=== PATIENT | female | born 1970 | race Hispanic/Latino ===

== ENCOUNTER → 2018-11-26 | Day surgery (SDC) | payer MEDICARE ==
[~2018-11-26] MED LIST: ASPIRIN81 MG PO; FENTANYL CITRATE/PF 100MCG/2 ML INJ ONE; GLUCAGON FOR INJ 1 MG VIAL ONE; HYOSCYAMINE SULFATE 0.5 MG/ML INJ ONE; LIDOCAINE HCL 2% LOCAL INJ 5 ML SDV VIAL INJ ONE; MIDAZOLAM HCL 2 MG/2 ML VIAL ONE; PROPOFOL IV EMULSION 10 MG/ML 50 ML VIAL ONE; TRIAMCINOLONE A15 G1; VITAMIN D1000 UNI1 PO; XALATAN2.5 ML
--- OUTSIDE RECORDS SUMMARY | 2018-11-26 10:03 | XMS REPORT | Summary of Care ---
Author Organization Unknown Address Unknown Phone Unavailable Encounter CHRISTY Mckeon(MISBAH) [id number] Date(s): 06/30/14 - 07/01/[address] Discharge Disposition: Home Physician Attending: Harshil De La O MD Physician Admitting: Harshil De La O MD Reason for Visit CADASIL Vital Signs 1 2 3 Most recent to oldest [Reference Range]: 154.94 cm (07/01/14 12:30 AM) 154.94 cm (06/30/14 4:08 PM) Height 99.3 DegF *HI* (06/30/14 10:36 PM) 98.5 DegF (06/30/14 6:47 PM) 98.3 DegF (06/30/14 4:08 PM) Temperature Oral [96.4-99.1 DegF] 156 mmHg *HI* (07/01/14 12:00 PM) 124 mmHg (07/01/14 11:00 AM) 119 mmHg (07/01/14 10:00 AM) Systolic Blood Pressure [90-140 mmHg] 81 mmHg (07/01/14 12:00 PM) 74 mmHg (07/01/14 11:00 AM) 77 mmHg (07/01/14 10:00 AM) Diastolic Blood Pressure [60-90 mmHg] 29 BRMIN *HI* (07/01/14 12:00 PM) 25 BRMIN *HI* (07/01/14 11:00 AM) 20 BRMIN (07/01/14 10:00 AM) Respiratory Rate [14-20 BRMIN] 77 bpm (06/30/14 10:36 PM) 80 bpm (06/30/14 6:47 PM) 84 bpm (06/30/14 4:08 PM) Peripheral Pulse Rate [60-100 bpm] 87.841 kg (07/01/14 12:30 AM) 84.091 kg (06/30/14 4:08 PM) Weight 36.59 m2 (07/01/14 12:30 AM) 35.03 m2 (06/30/14 4:08 PM) Body Mass Index Problem List Condition Effective Dates Status Health Status Informant Anxiety(Confirmed) Resolved 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) CVA (cerebral Resolved vascular accident)(Confirmed) Dementia(Confirmed) Resolved Glaucoma(Confirmed) Resolved HTN (hypertension), Resolved benign(Confirmed) MR (mental Resolved retardation)(Confirm ed) Allergies, Adverse Reactions, Alerts Substance Reaction Severity Status contrast media Active (iodine-based) penicillin Active Medications Abilify 2 mg oral tablet 6 mg=3 tab, PO, Daily, # 90 tab, 0 Refill(s) Start Date: 07/01/14 Status: Ordered Ativan 1 mg oral tablet 1 mg=1 tab, PRN, 0 Refill(s) Start Date: 07/01/14 Status: Ordered Ciprodex otic suspension 5 drp, RIGHT EAR, BID, 0 Refill(s) Start Date: 07/01/14 Status: Ordered Nuedexta oral capsule 1 cap, PO, BID, 0 Refill(s) Start Date: 07/01/14 Status: Ordered Saline Flush 0.9% 10 ml, Route: IVP, Drug Form: INJ, Dosing Weight 84.091, kg, Q12H, Start date: 0 07/01/14 9:00:00, Duration: 30 day, Stop date: 07/30/14 21:00:00 Notes: Same as: BD Posiflush Sterile Start Date: 07/01/14 Stop Date: 07/01/14 Status: Discontinued Saline Flush 0.9% 10 ml, Route: IVP, Drug Form: INJ, Dosing Weight 84.091, kg, PRN, PRN Line Flush , Start date: 06/30/14 21:48:00, Duration: 30 day, Stop date: 07/30/14 21:47:00 Notes: Same as: BD Posiflush Sterile Start Date: 06/30/14 Stop Date: 07/01/14 Status: Discontinued Results ELECTROLYTES Most recent to 1 2 oldest [Reference Range]: Sodium Lvl [135-145 139 mEq/L 142 mEq/L mEq/L] (07/01/14 3:35 AM) (06/30/14 10:07 PM) Potassium Lvl 5.0 mEq/L 3.7 mEq/L [3.5-5.1 mEq/L] (07/01/14 3:35 AM) (06/30/14 10:07 PM) Chloride Lvl [95-109 108 mEq/L 107 mEq/L mEq/L] (07/01/14 3:35 AM) (06/30/14 10:07 PM) CO2 [24-32 mEq/L] 20 mEq/L 21 mEq/L *LOW* *LOW* (07/01/14 3:35 AM) (06/30/14 10:07 PM) AGAP [10.0-20.0 16.0 mEq/L 17.7 mEq/L mEq/L] (07/01/14 3:35 AM) (06/30/14 10:07 PM) CHEM PANEL Most recent to 1 2 oldest [Reference Range]: Creatinine Lvl 0.4 mg/dL 0.6 mg/dL [0.5-1.4 mg/dL] *LOW* (06/30/14 10:07 PM) (07/01/14 3:35 AM) eGFR 129 mL/min/1.73m2 1 113 mL/min/1.73m2 2 *NA* *NA* (07/01/14 3:35 AM) (06/30/14 10:07 PM) BUN [7-22 mg/dL] 10 mg/dL 12 mg/dL (07/01/14 3:35 AM) (06/30/14 10:07 PM) Glucose Lvl [70-99 89 mg/dL 3 103 mg/dL 4 mg/dL] (07/01/14 3:35 AM) *HI* (06/30/14 10:07 PM) Total Protein 8.2 g/dL [6.4-8.4 g/dL] (06/30/14 10:07 PM) Albumin Lvl [3.5-5.0 3.7 g/dL g/dL] (06/30/14 10:07 PM) Globulin [2.0-4.0 4.5 g/dL g/dL] *HI* (06/30/14 10:07 PM) A/G Ratio [0.7-1.6] 0.8 (06/30/14 10:07 PM) Calcium Lvl 8.6 mg/dL 8.9 mg/dL [8.5-10.5 mg/dL] (07/01/14 3:35 AM) (06/30/14 10:07 PM) Phosphorus [2.5-4.5 3.5 mg/dL mg/dL] (07/01/14 3:35 AM) Magnesium Lvl 2.0 mg/dL [1.8-2.4 mg/dL] (07/01/14 3:35 AM) ALT [0-65 unit/L] 20 unit/L (06/30/14 10:07 PM) AST [0-37 unit/L] 19 unit/L (06/30/14 10:07 PM) Alk Phos [39-136 112 unit/L unit/L] (06/30/14 10:07 PM) Bili Total [0.2-1.3 0.3 mg/dL mg/dL] (06/30/14 10:07 PM) Bili Direct [0.0-0.3 0.2 mg/dL mg/dL] (06/30/14 10:07 PM) Bili Indirect 0.1 mg/dL [0.0-1.0 mg/dL] (06/30/14 10:07 PM) 1Result Comment: The eGFR is calculated using the CKD-EPI formula. In most young, healthy individuals the eGFR will be >90 mL/min/1.73m2. The eGFR declines with age. An eGFR of 60-89 may be normal in some populations, particularly the elderly, for whom the CKD-EPI formula has not been extensively validated. Use of the eGFR is not recommended in the following populations: Individuals with unstable creatinine concentrations, including patients and those with serious co-morbid conditions. Patients with extremes in muscle mass or diet. The data above are obtained from the National Kidney Disease Education Program ( NK[employer]) which additionally recommends that when the eGFR is used in patients with extremes of body mass index for purposes of drug dosing, the eGFR should be mul tiplied by the estimated BMI. 2Result Comment: The eGFR is calculated using the CKD-EPI formula. In most young, healthy individuals the eGFR will be >90 mL/min/1.73m2. The eGFR declines with age. An eGFR of 60-89 may be normal in some populations, particularly the elderly, for whom the CKD-EPI formula has not been extensively validated. Use of the eGFR is not recommended in the following populations: Individuals with unstable creatinine concentrations, including patients and those with serious co-morbid conditions. Patients with extremes in muscle mass or diet. The data above are obtained from the National Kidney Disease Education Program ( NKDEP) which additionally recommends that when the eGFR is used in patients with extremes of body mass index for purposes of drug dosing, the eGFR should be mul tiplied by the estimated BMI. 3Interpretive Data: Adult reference range values reflect the clinical guidelines of the [place] [employer]. 4Interpretive Data: Adult reference range values reflect the clinical guidelines of the [place] [employer]. LIPIDS Most recent to [Reference Range]: CHD Risk [3.90-5.80] 1.73 *LOW* (07/01/14 3:35 AM) Chol [<=199 mg/dL] 130 mg/dL (07/01/14 3:35 AM) Trig [<=149 mg/dL] 60 mg/dL (07/01/14 3:35 AM) HDL [>=61 mg/dL] 75 mg/dL (07/01/14 3:35 AM) LDL (Calculated) 43 mg/dL [<=99 mg/dL] (07/01/14 3:35 AM) VLDL 12 *NA* (07/01/14 3:35 AM) SPECIAL CHEMISTRY Most recent to [Reference Range]: Hgb A1C [<=5.6 %] 5.2 % (07/01/14 3:35 AM) HEMATOLOGY Most recent to 1 oldest [Reference Range]: WBC [3.7-10.4 K/CMM] 7.6 K/CMM 8.3 K/CMM (07/01/14 3:35 AM) (06/30/14 10:07 PM) RBC [4.20-5.40 4.18 M/CMM 4.47 M/CMM M/CMM] *LOW* (06/30/14 10:07 PM) (07/01/14 3:35 AM) Hgb [12.0-16.0 g/dL] 11.8 g/dL 12.1 g/dL *LOW* (06/30/14 10:07 PM) (07/01/14 3:35 AM) Hct [36.0-48.0 %] 36.5 % 38.7 % (07/01/14 3:35 AM) (06/30/14 10:07 PM) MCV [80.0-98.0 fL] 87.3 fL 86.5 fL (07/01/14 3:35 AM) (06/30/14 10:07 PM) MCH [27.0-31.0 pg] 28.2 pg 27.1 pg (07/01/14 3:35 AM) (06/30/14 10:07 PM) MCHC [32.0-36.0 32.4 g/dL 31.4 g/dL g/dL] (07/01/14 3:35 AM) *LOW* (06/30/14 10:07 PM) RDW [11.5-14.5 %] 14.7 % 13.9 % *HI* (06/30/14 10:07 PM) (07/01/14 3:35 AM) Platelet [133-450 281 K/CMM 267 K/CMM K/CMM] (07/01/14 3:35 AM) (06/30/14 10:07 PM) MPV [7.4-10.4 fL] 8.9 fL 8.3 fL (07/01/14 3:35 AM) (06/30/14 10:07 PM) Segs [45.0-75.0 %] 58.2 % 55.0 % (07/01/14 3:35 AM) (06/30/14 10:07 PM) Bands [0.0-11.0 %] 0.0 % (06/30/14 10:07 PM) Lymphocytes 31.6 % 37.0 % [20.0-40.0 %] (07/01/14 3:35 AM) (06/30/14 10:07 PM) Atypical Lymphs 0.0 % [<=0.0 %] (06/30/14 10:07 PM) Monocytes [2.0-12.0 8.6 % 8.0 % %] (07/01/14 3:35 AM) (06/30/14 10:07 PM) Eosinophils [0.0-4.0 1.3 % %] (07/01/14 3:35 AM) Basophils [0.0-1.0 0.3 % %] (07/01/14 3:35 AM) Segs-Bands # 4.4 K/CMM 4.6 K/CMM [1.5-8.1 K/CMM] (07/01/14 3:35 AM) (06/30/14 10:07 PM) Lymphocytes # 2.4 K/CMM 3.1 K/CMM [1.0-5.5 K/CMM] (07/01/14 3:35 AM) (06/30/14 10:07 PM) Monocytes # [0.0-0.8 0.7 K/CMM 0.7 K/CMM K/CMM] (07/01/14 3:35 AM) (06/30/14 10:07 PM) Eosinophils # 0.1 K/CMM [0.0-0.5 K/CMM] (07/01/14 3:35 AM) Tot Cell Ct 100 *NA* (06/30/14 10:07 PM) RBC Morph Normal (06/30/14 10:07 PM) Plt Morph Normal (06/30/14 10:07 PM) PT [12.0-14.7 12.3 seconds seconds] (06/30/14 10:07 PM) INR [0.85-1.17] 0.92 5 (06/30/14 10:07 PM) PTT [22.9-35.8 30.3 seconds 6 seconds] (06/30/14 10:07 PM) 5Interpretive Data: RECOMMENDED RANGES FOR PROTIME INR: 2.0-3.0 for most medical and surgical thromboembolic states. 2.5-3.5 for artificial heart valves and recurrent embolism. INR SHOULD BE USED ONLY FOR PATIENTS ON STABLE ANTICOAGULANT THERAPY. 6Interpretive Data: Heparin Therapeutic Range: 57 - 92 Seconds Medications Administered During Your Visit No data available for this section Immunizations No data available for this section Social History Social History Type Response Alcohol Use: Never Smoking Status Never smoker, Exposure to Tobacco Smoke None, Cigarette Smoking Last 365 Days Yes, Reg Smoking Cessation Counseling No Assessment and Plan Extracted from: Title: Stroke H&P Author: Mellisa Lopez MD Date: 06/30/14 STROKE TEAM / NEUROLOGY - HISTORY AND PHYSICAL Patient Name: Reza Rivas Date of Admission: 06/30/14 Requesting Physician/Service: ER CC: fall HISTORY OF PRESENT ILLNESS: Patient is a 43yo F with PMH of CADASIL (follows with Dr. Samaniego) and pseudobulbar affect brought into ED today after a fall at home. Patient was walking when she became unsteady and fell and hit her head on hard floor. She did not lose consciousness but patinet sustained a facial abrasion so sister brought her in. There was no change in mental status, new weakness, or any other concerning changes. Patient has had numerous falls in the past. She uses a wheelchair in public but does not use any walking device at home. She walks while holding onto things for assistance. She has recently completed a 6 week in home physical rehab program. HCT obtained in ED shows new R. lateral temporo- occipital region nonspecific hyperdensity. Patient admitted for observation and further workup. REVIEW OF SYSTEMS: GEN: no fever, chills, weight loss, fatigue EYES: no blurred vision, double vision CARDIO: no chest pain, palpitations PULM: no shortness of breath, cough GI: no nausea, vomiting, diarrhea, no abd pain : no frequency, dysuria, hematuria NEURO: see HPI SKIN: no rash or lesion MSK:+ weakness LYMPH/IMMUNO: No lymph node enlargement/tenderness, no heat/cold intolerance PAST MEDICAL HISTORY: CADASIL Pseudobulbar affect congenital nystagmus PAST SURGICAL HISTORY: cataract surgery foot spur removal FAMILY MEDICAL HISTORY: mom with CHF, DM; sister with migraine; no hx of stroke or dementia SOCIAL HISTORY: no tob/etoh/illicits; lives with her sister; has HS diploma; has been special ed since a child. MEDICATIONS: ASA 81mg daily abilify 2mg daily nudexta 20 - 10 BID eye drops ALLERGIES: iodine based contrast PCN PHYSICAL EXAM: VitalsTmp(F)Tmp(C)[id number] 07/01 00:00 [id number]------ 06/30 22:[id number]/85---[id number]------ 06/30 18:[id number]/61---[id number]------ 06/30 16:[id number]/92---[id number]------ 24 Hr Tmax: 99.3F (37.39c) at 06/30 22:36Vital Signs are the last 5 in the past 48 hours. 24 Hr Tmin: 98.3F (36.83c) at 06/30 16:08Weights are the last 5 in 60 days, plus initial. DateWt(kg)Wt(lb)Ht(cm)Ht(in)MethodBMIBSA 07/01 87.84 193.25Measured 36.61.94 06/30 (initial) 84.09 185.00Estimated 35.01.90 06/20144.94 61.00Stated 24 Hr Point of Care Glucoses 06/30 2350Glucose [id number] H GENERAL: Awake, NAD. HEENT: - Normocephalic and atraumatic; MMM SKIN: facial abrasion L cheek and knee NEURO: Mental status: Awake, alert, and interactive. Answers questions and follows commands appropriately. Cranial nerves: Pupils equal, round, and reactive. R___3___mm L__3___mm. Visual yen intact to confrontation. L gaze palsy, R exotropia, primary horizontal nystagmus present. Face symmetric at rest and with activation. Facial sensation is intact to light touch. Tongue and palate midline. Good strength in trapezius and sternocleidomastoid bilaterally. Motor: Normal bulk and tone. Strength is 5/5 proximally and distally. Sensation: Intact to light touch throughout Coordination: No dysmetria on finger-nose Reflexes: brisk throughout Toes downgoing bilaterally. Gait: not assessed NIH Stroke Scale (NIHSS) 0 1a. Level of Consciousness; 0-alert 1-drowsy 2-stupor 3-comatose 0 1b. LOC Questions month and age; 0-both 1-one 2-neither 0 1c. LOC Commands open/close eyes, it auditor/release non-paretic hand; 0-both 1-one 2-neither 0 2. Best Gaze; 0-nl 1-partial 2-forced gaze - congenital nystagmus 0 3. Visual Yen; 0-No visual loss. 1-Partial hemianopia 2-Complete 3-Bilateral 0 4. Facial Palsy; 0-none 1-minor 2-partial 3-complete 0 5. Motor - R arm; 0-No drift 1-Drift 2-Some antigravity 3-No antigravity 4- No movement 0 6. Motor - R leg; 0-No drift 1-Drift 2-Some antigravity 3-No antigravity 4- No movement 0 7. Motor - L arm; 0-No drift 1-Drift 2-Some antigravity 3-No antigravity 4- No movement 0 8. Motor - L leg; 0-No drift 1-Drift 2-Some antigravity 3-No antigravity 4- No movement 0 9. Limb Ataxia; 0 absent 1 - 1limb 2 - 2 limbs 0 10. Sensory; 0-nl 1-partial loss 2-dense loss 0 11. Best Language; 0-nl 1-mild/mod 2-severe 3-mute 0 12. Dysarthria; 0-nl 1-mild/mod 2-severe x-untestable 0 13. Extinction and Inattention (formerly Neglect); 0-none 1-partial 2-complete TOTAL SCORE 0 SIGNIFICANT LABS: none DIAGNOSTIC TESTS: CT Head: New small ill-defined hyperdensity in the R. lateral temporo-occipital region. ASSESSMENT: Patient is a 43yo F with PMH of CADASIL (follows with Dr. Samaniego) and pseudobulbar affect brought into ED today after a fall at home. CT findings show new hyperdensity and further workup recommended. RECOMMENDATIONS: 1. Obtain Labs: PT/PTT, BMP, CBC, LFTs 2. Recommend obtaining MRI brain w/wo contrast to further assess CT findings. 3. Admit to stroke unit. 4. Will hold further doses of aspirin for now. Patient discussed with Dr. Garcia. Mellisa Lopez PGY3 Pgr [id number]. STROKE NEUROLOGY STAFF I have seen and examined the patient. Furthermore, I have discussed the case with and reviewed Dr. Lopez's note and agree with the history, exam, assessment and plan. See note below for additions and/or exceptions and my findings. I have personally viewed the patient's radiographic studies and laboratory tests. Patient admitted for fall overnight and had possible hyperdensity on CT of the head. CT-head: negative acute, no ICH. Assessment / Plan: [id number] Fall and abnormal brain scan - V15.88 & 794.09 - Counseling provided as she needs to use History of CADASIL - Continue home meds. Discharge to home today. Harshil De La O M.D. Access Representative Stroke Division; Department of Neurology [phone] (pager) [phone] (cell)
--- OUTSIDE RECORDS SUMMARY | 2018-11-26 10:03 | XMS REPORT | Continuity of Care Document ---
Author Author Greg love [facility], [place] Interface Address Unknown Phone Unavailable Problems Problem Status Onset Date Classification Date Reported Comments Source FALL Active 06/17/2015 [facility] Discharge Diagnosis: Hematoma 06/17/2015 06/20/2015 [facility] Discharge Diagnosis: Fall at home 06/17/2015 06/20/2015 [facility] Discharge Diagnosis: Accidental fall 12/09/2013 12/12/2013 [facility] FELL/HIT HEAD AT HOME Active 12/09/2013 [facility] ABDOMINAL PAIN Active 06/02/2011 [facility] 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 [facility] Anxiety Resolved Problem [facility]/04[facility] (<span ID="[id number]">Confirmed</span>) Resolved Problem 10/04/2016 [facility] (<span ID="[id number]">Confirmed</span>) [facility] Dementia Resolved Problem 10/04[facility]2016 [facility] Glaucoma Resolved Problem 10/04[facility]2016 [facility] HTN , benign(<span ID="[id number]">Confirmed</span>) Resolved Problem 10/04/2016 [facility] MR (<span ID="[id number]">Confirmed</span>) Resolved Problem 10/04/2016 [facility] CVA Active [facility] Medications Medication Details Route Status Patient Instructions Ordering Provider Order Date Source Ibuprofen 400 mg, 1 tab, Route: PO, Drug form: TAB, ONCE, Dosing Weight 83.182, kg, Priority: STAT, Start date: 06/17/15 20:20:00, Stop date: 06/17/15 20:20:00 Inactive 06/18/2015 [facility] Saline Flush 0.9% 10 mL, Route: IVP, Drug Form: INJ, Dosing Weight 83.182, kg, PRN, PRN Line Flush, Start date: 06/17/15 20:20:00, Duration: 30 day, Stop date: 07/17/15 20:19:00Notes: (Same as: BD Posiflush) No Longer Active 06/18/2015 [facility] Saline Flush 0.9% 10 ml, Route: IVP, Drug Form: INJ, Dosing Weight 84.091, kg, Q12H, Start date: 07/01/14 9:00:00, Duration: 30 day, Stop date: 07/30/14 21:00:00Notes: Same as: BD Posiflush Sterile Inactive 07/01/2014 [facility] Lorazepam 1 MG Oral Tablet [Ativan] 1 mg=1 tab, PRN, 0 Refill(s) Active 07/01/2014 [facility] Dextromethorphan Hydrobromide 20 MG / Quinidine Sulfate 10 MG Oral Capsule [Nuedexta] 1 cap, PO, BID, 0 Refill(s) Active 07/01/2014 [facility] aripiprazole 2 MG Oral Tablet [Abilify] 6 mg=3 tab, PO, Daily, # 90 tab, 0 Refill(s) Active 07/01/2014 [facility] Ciprofloxacin 3 MG/ML / Dexamethasone 1 MG/ML Otic Suspension [Ciprodex] 5 drp, RIGHT EAR, BID, 0 Refill(s) Active 07/01/2014 [facility] Saline Flush 0.9% 10 ml, Route: IVP, Drug Form: INJ, Dosing Weight 84.091, kg, PRN, PRN Line Flush, Start date: 06/30/14 21:48:00, Duration: 30 day, Stop date: 07/30/14 21:47:00Notes: Same as: BD Posiflush Sterile No Longer Active 07/01/2014 [facility] Tylenol 650 mg, 2 tab, Route: PO, Drug form: TAB, ONCE, Dosing Weight 84.091, kg, Priority: STAT, Start date: 12/09/13 17:16:00, Stop date: 07/01/14 17:16:00Notes: Do not exceed 4 gm/day. (Same as: Tylenol) Inactive 12/09/2013 [facility] Nexium 40 mg oral delayed release capsule 40 mg, 1 cap, PO, Daily, 30 cap, Substitution Allowed PO Active [place] 06/02/2011 [facility] GI cocktail 40 mL, Route: PO, Drug Form: SUSP, ONCE, STAT, Start date: 06/02/11 2:28:00, Stop date: 06/02/11 2:28:00 PO No Longer Active [place] 06/02/2011 [facility] aspirin 81 mg tablet, chewable 81 mg, 1 tab, PO, Daily, tab, Substitution Allowed, CHEWTAB PO Active 06/02/2011 [facility] Ciprodex otic suspension Substitution Allowed, Maintenance Active 06/02/2011 [facility] Xalatan Substitute Allowed Active 06/02/2011 [facility] ondansetron 4 mg, 2 mL, Route: IVP, Drug form: INJ, ONCE, Priority: STAT, Start date: 06/02/11 1:55:00, Stop date: 06/02/11 1:55:00 IVP No Longer Active [place] 06/02/2011 [facility] morphine Sulfate 2 mg, 0.5 mL, Route: IVP, Drug form: INJ, ONCE, Priority: STAT, Start date: 06/02/11 1:55:00, Stop date: 06/02/11 1:55:00 IVP No Longer Active [place] 06/02/2011 [facility] Protonix 40 mg, Route: IVP, Drug form: INJ, ONCE, Start date: 06/02/11 1:55:00, Stop date: 06/02/11 1:55:00 IVP No Longer Active [place] 06/02/2011 [facility] Allergies, Adverse Reactions, Alerts Substance Category Reaction Severity Reaction type Status Date Reported Comments Source penicillin Assertion Drug allergy Active [facility] contrast media (iodine-based) Assertion Drug allergy Active [facility] Immunizations Immunization Date Given Site Status Last Updated Comments Source Results Order Name Results Value Reference Range Date Interpretation Comments Source Brain wo contrast MRI Brain wo contrast MRI EXAM: MRI BRAIN WITHOUT CONTRAST DATE: 07/17/2015 11:04 AM MECHANIC'S ASSISTANT INDICATION: 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 IV contrast: None. FINDINGS: No restricted diffusion is identified. There are confluent areas of increased T2 signal within the supratentorial white matter consistent with advanced chronic microvascular ischemic changes. There are multiple areas of chronic infarct involving the anterior temporal lobes as well as the oswald. Chronic lacunar infarcts are seen in the supratentorial white matter, deep magallon nuclei and oswald. These findings are consistent with history of CADASIL. No new areas of infarct are identified. The ventricles are normal in size and shape with no midline shift or mass effect. The posterior fossa is otherwise unremarkable. There is fluid in the left mastoid air cells. The visible paranasal sinuses and skull base are unremarkable. IMPRESSION: 1. No acute infarct. 2. Findings consistent with patient history of CADASIL with no new areas of infarct identified since 2013. 07/17/2015 - - This report was dictated by a Casino Controller/Fellow. I have personally reviewed the images as well as the Resident's interpretation and agree with the findings. Read by: Indy Santamaria MD Resident: Indy Santamaria MD Dictated Date/time: 07/17/15 14:18 Electronically Signed by: Kori Cornejo MD 07/17/15 15:17 FINAL REPORT [facility] HEMATOLOGY Segs-Bands # 6.6 K/CMM 1.5 - 8.1 06/18/2015 [facility] HEMATOLOGY Monocytes # 0.6 K/CMM 0.0 - 0.8 06/18/2015 [facility] HEMATOLOGY Lymphocytes # 2.3 K/CMM 1.0 - 5.5 06/18/2015 [facility] HEMATOLOGY Basophils 0.9 % 0.0 - 1.0 06/18/2015 [facility] HEMATOLOGY Eosinophils # 0.1 K/CMM 0.0 - 0.5 06/18/2015 [facility] HEMATOLOGY Basophils # 0.1 K/CMM 0.0 - 0.2 06/18/2015 [facility] HEMATOLOGY Eosinophils 0.7 % 0.0 - 4.0 06/18/2015 [facility] HEMATOLOGY Monocytes 6.2 % 2.0 - 12.0 06/18/2015 [facility] HEMATOLOGY Lymphocytes 23.5 % 20.0 - 40.0 06/18/2015 [facility] HEMATOLOGY Segs 68.7 % 45.0 - 75.0 06/18/2015 [facility] HEMATOLOGY RDW 14.9 % 11.5 - 14.5 06/18/2015 [facility] HEMATOLOGY MCHC 31.7 g/dL 32.0 - 36.0 06/18/2015 [facility] HEMATOLOGY MCH 26.7 pg 27.0 - 31.0 06/18/2015 [facility] HEMATOLOGY RBC 4.58 M/CMM 4.20 - 5.40 06/18/2015 [facility] HEMATOLOGY MCV 84.2 fL 80.0 - 98.0 06/18/2015 [facility] HEMATOLOGY Hct 38.6 % 36.0 - 48.0 06/18/2015 [facility] HEMATOLOGY Hgb 12.2 g/dL 12.0 - 16.0 06/18/2015 [facility] HEMATOLOGY MPV 8.1 fL 7.4 - 10.4 06/18/2015 [facility] HEMATOLOGY Platelet 303 K/CMM 133 - 450 06/18/2015 [facility] HEMATOLOGY WBC 9.6 K/CMM 3.7 - 10.4 06/18/2015 [facility] CHEM PANEL eGFR 113 mL/min/1.73m2 06/18/2015 Result Comment: The eGFR is calculated using the [...] from the National Kidney Disease Education Program (NKDEP) which additionally recommends that when the eGFR is used in patients with extremes of body mass index for purposes of drug dosing, the eGFR should be multiplied by the estimated BMI. [facility] CHEM PANEL CO2 26 meq/L 24 - 32 06/18/2015 [facility] CHEM PANEL Calcium Lvl 9.4 mg/dL 8.5 - 10.5 06/18/2015 [facility] CHEM PANEL Chloride Lvl 103 meq/L 95 - 109 06/18/2015 [facility] CHEM PANEL AGAP 14.8 meq/L 10.0 - 20.0 06/18/2015 [facility] CHEM PANEL Glucose Lvl 111 mg/dL 70 - 99 06/18/2015 [facility] CHEM PANEL BUN 13 mg/dL 7 - 22 06/18/2015 [facility] CHEM PANEL Creatinine Lvl 0.59 mg/dL 0.50 - 1.40 06/18/2015 [facility] CHEM PANEL Sodium Lvl 139 meq/L 135 - 145 06/18/2015 [facility] CHEM PANEL Potassium Lvl 4.8 meq/L 3.5 - 5.1 06/18/2015 Result Comment: moderate hemolysis [facility] Brain wo contrast CT Brain wo contrast CT CT SCAN OF THE BRAIN DATE: 06/17/2015 at 10:22 p.m. Comparison studies: 06/30/2014. MRI 01/06/2014. CLINICAL INFORMATION: Pain post trauma. History of CADASIL syndrome. TECHNIQUE: Routine axial images of the brain were obtained in the unenhanced mode. FINDINGS: There are no acute hemorrhages or infarcts. The magallon/white interfaces are well defined. 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 There are no acute bony abnormalities. The calvarium is intact. Again noted are postoperative changes of previous right-sided mastoidectomy. Prosthetic lenses are again noted within both globes. IMPRESSION: 1. No acute intracranial abnormality. There is no significant change from the prior study of one year earlier.5 2. 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 3. Postoperative changes of right-sided mastoidectomy. 06/17/2015 - - Read by: Rigoberto Kraus MD Dictated Date/time: 06/18/15 00:00 Electronically Signed by: Rigoberto Kraus MD 06/18/15 00:10 FINAL REPORT [facility] Chest 1view DX Chest 1view DX EXAM: XR CHEST 1 VIEW DATE: Jun 17, 2015 08:31:00 PM INDICATION: Pain after fall from standing. COMPARISON: 06/02/2011. FINDINGS: An AP portable supine chest radiograph is submitted for interpretation. No acute pulmonary or pleural-based abnormality is identified. The cardiomediastinal silhouette, remaining soft tissues and osseous structures are unremarkable for acute abnormality. IMPRESSION: No acute abnormality. 06/17/2015 - - Read by: Jose Kiser MD Dictated Date/time: 06/17/15 20:33 Electronically Signed by: Jose Kiser MD 06/17/15 20:34 FINAL REPORT [facility] Pelvis AP DX Pelvis AP DX EXAM: XR PELVIS 1 VIEW DATE: 2015-06-17 20:31:00 INDICATION: Pain after fall from standing. TECHNIQUE: A single portable supine pelvis radiograph is submitted for interpretation. DISCUSSION: No acute bony, articular or soft tissue abnormality is identified. IMPRESSION: No acute abnormality is identified. 06/17/2015 - - Read by: Jose Kiser MD Dictated Date/time: 06/17/15 20:32 Electronically Signed by: Jose Kiser MD 06/17/15 20:33 FINAL REPORT [facility] CHEM PANEL Phosphorus 3.5 mg/dL 2.5 - 4.5 07/01/2014 [facility] CHEM PANEL Magnesium Lvl 2.0 mg/dL 1.8 - 2.4 07/01/2014 [facility] CHEM PANEL eGFR 129 mL/min/1.73m2 07/01/2014 1Result Comment: The eGFR is calculated using [...] from the National Kidney Disease Education Program (NKDEP) which additionally recommends that when the eGFR is used in patients with extremes of body mass index for purposes of drug dosing, the eGFR should be multiplied by the estimated BMI. [facility] CHEM PANEL Glucose Lvl 89 mg/dL 70 - 99 07/01/2014 3Interpretive Data: Adult reference range values reflect the clinical guidelines of the [place] [employer]. [facility] CHEM PANEL BUN 10 mg/dL 7 - 22 07/01/2014 [facility] CHEM PANEL Calcium Lvl 8.6 mg/dL 8.5 - 10.5 07/01/2014 [facility] CHEM PANEL CO2 20 meq/L 24 - 32 07/01/2014 [facility] CHEM PANEL AGAP 16.0 meq/L 10.0 - 20.0 07/01/2014 [facility] CHEM PANEL Potassium Lvl 5.0 meq/L 3.5 - 5.1 07/01/2014 [facility] CHEM PANEL Chloride Lvl 108 meq/L 95 - 109 07/01/2014 [facility] CHEM PANEL Creatinine Lvl 0.4 mg/dL 0.5 - 1.4 07/01/2014 [facility] CHEM PANEL Sodium Lvl 139 meq/L 135 - 145 07/01/2014 [facility] HEMATOLOGY Lymphocytes # 2.4 K/CMM 1.0 - 5.5 07/01/2014 [facility] HEMATOLOGY Eosinophils # 0.1 K/CMM 0.0 - 0.5 07/01/2014 [facility] HEMATOLOGY Monocytes # 0.7 K/CMM 0.0 - 0.8 07/01/2014 [facility] HEMATOLOGY Segs-Bands # 4.4 K/CMM 1.5 - 8.1 07/01/2014 [facility] HEMATOLOGY Monocytes 8.6 % 2.0 - 12.0 07/01/2014 [facility] HEMATOLOGY Eosinophils 1.3 % 0.0 - 4.0 07/01/2014 [facility] HEMATOLOGY Basophils 0.3 % 0.0 - 1.0 07/01/2014 [facility] HEMATOLOGY Lymphocytes 31.6 % 20.0 - 40.0 07/01/2014 [facility] HEMATOLOGY Segs 58.2 % 45.0 - 75.0 07/01/2014 [facility] HEMATOLOGY MCHC 32.4 g/dL 32.0 - 36.0 07/01/2014 [facility] HEMATOLOGY MCH 28.2 pg 27.0 - 31.0 07/01/2014 [facility] HEMATOLOGY RDW 14.7 % 11.5 - 14.5 07/01/2014 [facility] HEMATOLOGY Platelet 281 K/CMM 133 - 450 07/01/2014 [facility] HEMATOLOGY MPV 8.9 fL 7.4 - 10.4 07/01/2014 [facility] HEMATOLOGY Hct 36.5 % 36.0 - 48.0 07/01/2014 [facility] HEMATOLOGY Hgb 11.8 g/dL 12.0 - 16.0 07/01/2014 [facility] HEMATOLOGY MCV 87.3 fL 80.0 - 98.0 07/01/2014 [facility] HEMATOLOGY RBC 4.18 M/CMM 4.20 - 5.40 07/01/2014 [facility] HEMATOLOGY WBC 7.6 K/CMM 3.7 - 10.4 07/01/2014 [facility] LIPIDS VLDL 12 07/01/2014 [facility] LIPIDS LDL (Calculated) 43 mg/dL <=99 mg/dL 07/01/2014 [facility] LIPIDS HDL 75 mg/dL >=61 mg/dL 07/01/2014 [facility] LIPIDS Chol 130 mg/dL <=199 mg/dL 07/01/2014 [facility] LIPIDS Trig 60 mg/dL <=149 mg/dL 07/01/2014 [facility] LIPIDS CHD Risk 1.73 3.90 - 5.80 07/01/2014 [facility] SPECIAL CHEMISTRY Hgb A1C 5.2 % <=5.6 % 07/01/2014 [facility] CHEM PANEL A/G Ratio 0.8 0.7 - 1.6 07/01/2014 [facility] CHEM PANEL Globulin 4.5 g/dL 2.0 - 4.0 07/01/2014 [facility] CHEM PANEL Bili Indirect 0.1 mg/dL 0.0 - 1.0 07/01/2014 [facility] CHEM PANEL ALT 20 unit/L 0 - 65 07/01/2014 [facility] CHEM PANEL Alk Phos 112 unit/L 39 - 136 07/01/2014 [facility] CHEM PANEL AST 19 unit/L 0 - 37 07/01/2014 [facility] CHEM PANEL Bili Direct 0.2 mg/dL 0.0 - 0.3 07/01/2014 [facility] CHEM PANEL Bili Total 0.3 mg/dL 0.2 - 1.3 07/01/2014 [facility] CHEM PANEL Total Protein 8.2 g/dL 6.4 - 8.4 07/01/2014 [facility] CHEM PANEL Albumin Lvl 3.7 g/dL 3.5 - 5.0 07/01/2014 [facility] CHEM PANEL Glucose Lvl 103 mg/dL 70 - 99 07/01/2014 4Interpretive Data: Adult reference range values reflect the clinical guidelines of the [place] [employer]. [facility] CHEM PANEL eGFR 113 mL/min/1.73m2 07/01/2014 2Result Comment: The eGFR is calculated using [...] from the National Kidney Disease Education Program (NKDEP) which additionally recommends that when the eGFR is used in patients with extremes of body mass index for purposes of drug dosing, the eGFR should be multiplied by the estimated BMI. [facility] CHEM PANEL AGAP 17.7 meq/L 10.0 - 20.0 07/01/2014 [facility] CHEM PANEL Calcium Lvl 8.9 mg/dL 8.5 - 10.5 07/01/2014 [facility] CHEM PANEL Chloride Lvl 107 meq/L 95 - 109 07/01/2014 [facility] CHEM PANEL Potassium Lvl 3.7 meq/L 3.5 - 5.1 07/01/2014 [facility] CHEM PANEL Sodium Lvl 142 meq/L 135 - 145 07/01/2014 [facility] CHEM PANEL Creatinine Lvl 0.6 mg/dL 0.5 - 1.4 07/01/2014 [facility] CHEM PANEL BUN 12 mg/dL 7 - 22 07/01/2014 [facility] CHEM PANEL CO2 21 meq/L 24 - 32 07/01/2014 [facility] HEMATOLOGY PTT 30.3 s 22.9 - 35.8 07/01/2014 6Interpretive Data: Heparin Therapeutic Range: 57 - 92 Seconds [facility] HEMATOLOGY PT 12.3 s 12.0 - 14.7 07/01/2014 [facility] HEMATOLOGY INR 0.92 0.85 - 1.17 07/01/2014 5Interpretive Data: RECOMMENDED RANGES FOR PROTIME INR: 2.0-3.0 for most medical and surgical thromboembolic states. 2.5-3.5 for artificial heart valves and recurrent embolism. INR SHOULD BE USED ONLY FOR PATIENTS ON STABLE ANTICOAGULANT THERAPY. [facility] HEMATOLOGY MCH 27.1 pg 27.0 - 31.0 07/01/2014 [facility] HEMATOLOGY MCV 86.5 fL 80.0 - 98.0 07/01/2014 [facility] HEMATOLOGY Hct 38.7 % 36.0 - 48.0 07/01/2014 [facility] HEMATOLOGY MCHC 31.4 g/dL 32.0 - 36.0 07/01/2014 [facility] HEMATOLOGY MPV 8.3 fL 7.4 - 10.4 07/01/2014 [facility] HEMATOLOGY Platelet 267 K/CMM 133 - 450 07/01/2014 [facility] HEMATOLOGY RDW 13.9 % 11.5 - 14.5 07/01/2014 [facility] HEMATOLOGY WBC 8.3 K/CMM 3.7 - 10.4 07/01/2014 [facility] HEMATOLOGY RBC 4.47 M/CMM 4.20 - 5.40 07/01/2014 [facility] HEMATOLOGY Hgb 12.1 g/dL 12.0 - 16.0 07/01/2014 [facility] HEMATOLOGY Plt Morph Normal (06/30/14 10:07 PM) 07/01/2014 [facility] HEMATOLOGY Tot Cell Ct 100 07/01/2014 [facility] HEMATOLOGY Monocytes 8.0 % 2.0 - 12.0 07/01/2014 [facility] HEMATOLOGY Atypical Lymphs 0.0 % <=0.0 % 07/01/2014 [facility] HEMATOLOGY RBC Morph Normal (06/30/14 10:07 PM) 07/01/2014 [facility] HEMATOLOGY Segs 55.0 % 45.0 - 75.0 07/01/2014 [facility] HEMATOLOGY Monocytes # 0.7 K/CMM 0.0 - 0.8 07/01/2014 [facility] HEMATOLOGY Lymphocytes # 3.1 K/CMM 1.0 - 5.5 07/01/2014 [facility] HEMATOLOGY Lymphocytes 37.0 % 20.0 - 40.0 07/01/2014 [facility] HEMATOLOGY Bands 0.0 % 0.0 - 11.0 07/01/2014 [facility] HEMATOLOGY Segs-Bands # 4.6 K/CMM 1.5 - 8.1 07/01/2014 [facility] Brain wo contrast CT Brain wo contrast CT CT SCAN OF THE BRAIN DATE: 06/30/2014 at 7:23 p.m. CLINICAL INFORMATION: Headache with trauma. CADASIL syndrome. Comparison studies: MRI 01/06/2014. TECHNIQUE: Routine axial images of the brain were obtained in the unenhanced mode. FINDINGS: There are no acute hemorrhages or infarcts. The magallon/white interfaces are well defined. 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 There are no mass lesions or extra-axial collections. A small hyperdense focus is noted within the right occipital lobe (image 17), most likely representing artifact. There are no acute bony abnormalities. The calvarium is intact. There are postoperative changes of previous right-sided mastoidectomy. Prosthetic lenses are noted within both globes. IMPRESSION: 1. No acute intracranial abnormality. 2. 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 3. Postoperative changes of right-sided mastoidectomy. 06/30/2014 - - Read by: Rigoberto Kraus MD Dictated Date/time: 07/01/14 03:54 Electronically Signed by: Rigoberto Kraus MD 07/01/14 04:48 FINAL REPORT [facility] Digital Mammo Screening [place] Digital Mammo Screening [place] - DIGITAL MAMMO SCREENING [place] BILATERAL [facility] DIGITAL SCREENING MAMMOGRAM WITH CAD: 04/06/2014 CLINICAL: Routine. Current study was evaluated with a Computer Aided Detection (CAD) system. No prior exams were available for comparison. There are scattered fibroglandular densities in both breasts. This is the patient's baseline mammogram. Technologist indicates that the patient was very difficult to position and that these are the best images possible. No significant masses, calcifications, or other findings are seen in either breast. IMPRESSION: BENIGN There is no mammographic evidence of malignancy. A screening mammogram in one year is recommended. Andriy Jack M.D. hh/penrad:04/06/2014 15:19:41 Planner: Salome PETERSON (R)), [facility] Outpatient Imaging Department This exam was dictated and interpreted by [id number] for [facility]. letter sent: Normal exam Mammogram BI-RADS: 2 Benign 04/06/2014 - - Read by: Andriy Jack MD PHD Dictated Date/time: 04/06/14 15:19 Electronically Signed by: Andriy Jack MD PHD 04/06/14 15:19 FINAL REPORT ZOILA Love Brain wo contrast MRI Brain wo contrast MRI EXAMINATION: MRI brain without contrast. DATE: 01/06/2014. INDICATION: Cassella. Pseudobulbar palsy. DISCUSSION: Multiplanar noncontrast MRI images the brain are performed and compared to an exam dated 12/22/2011. Over the interval, allowing for differences in positioning and technique, there has probably been no important in confluent periventricular white matter T2 hyperintensities. Central pontine signal changes are again noted. No interval white matter lesions are identified, and diffusion weighted images demonstrate no acute abnormality. Gradient echo images demonstrate an area of susceptibility along the right anterior pontomedullary junction at the level of nerves VII and VIII exit zones: this is not appreciated on prior examinations and may represent a new area of microhemorrhage. The sinuses and skull base are unremarkable. Opacification the left mastoid air cells continues. IMPRESSION: Question new area of microhemorrhage in the pontomedullary junction on the right area. Stable small vessel changes in the oswald and periventricular white matter consistent with the clinical diagnosis. 01/06/2014 - - Read by: Kerwin Machado MD Dictated Date/time: 01/06/14 14:09 Electronically Signed by: Kerwin Machado MD 01/06/14 14:29 FINAL REPORT ZOILA Love CHEMISTRY Phosphorus 2.9 mg/dL 2.5 - 4.5 06/02/2011 Normal [facility] CHEMISTRY Magnesium Lvl 2.1 mg/dL 1.8 - 2.4 06/02/2011 Normal [facility] CHEMISTRY AGAP 12.9 meq/L 10.0 - 20.0 06/02/2011 Normal [facility] CHEMISTRY Potassium Lvl 3.9 meq/L 3.5 - 5.1 06/02/2011 Normal [facility] CHEMISTRY Chloride Lvl 105 meq/L 95 - 109 06/02/2011 Normal [facility] CHEMISTRY CO2 28 meq/L 24 - 32 06/02/2011 Normal [facility] CHEMISTRY Calcium Lvl 9.1 mg/dL 8.5 - 10.5 06/02/2011 Normal [facility] CHEMISTRY Sodium Lvl 142 meq/L 135 - 145 06/02/2011 Normal [facility] CHEMISTRY Creatinine Lvl 0.7 mg/dL 0.5 - 1.4 06/02/2011 Normal [facility] CHEMISTRY BUN 9 mg/dL 7 - 22 06/02/2011 Normal [facility] CHEMISTRY Glucose Lvl 101 mg/dL 06/02/2011 NA 1Interpretive Data: Reference Ranges : 0 - 7 days : 41 - 90 mg/dL7 days - 150 yrs : 70 - 99 mg/dL (fasting), based on the clinical recommendations of the [place] [employer]. [facility] CHEMISTRY ALT 29 U/L 0 - 65 06/02/2011 Normal [facility] CHEMISTRY Bili Direct 0.1 mg/dL 0.0 - 0.3 06/02/2011 Normal [facility] CHEMISTRY AST 17 U/L 0 - 37 06/02/2011 Normal [facility] CHEMISTRY Alk Phos 123 U/L 39 - 136 06/02/2011 Normal [facility] CHEMISTRY Bili Total 0.3 mg/dL 0.2 - 1.3 06/02/2011 Normal [facility] CHEMISTRY Albumin Lvl 4.2 g/dL 3.5 - 5.0 06/02/2011 Normal [facility] CHEMISTRY Total Protein 8.2 g/dL 6.4 - 8.4 06/02/2011 Normal [facility] CHEMISTRY A/G Ratio 1.1 0.7 - 1.6 06/02/2011 Normal [facility] CHEMISTRY Bili Indirect 0.2 mg/dL 0.0 - 1.0 06/02/2011 Normal [facility] CHEMISTRY Globulin 4.0 g/dL 2.0 - 4.0 06/02/2011 Normal [facility] CHEMISTRY Lipase Lvl 158 U/L 73 - 393 06/02/2011 Normal [facility] HEMATOLOGY RBC Morph Normal (06/02/2011 02:23:00) 06/02/2011 Normal [facility] HEMATOLOGY Basophils # 0.0 K/CMM 0.0 - 0.2 06/02/2011 Normal [facility] HEMATOLOGY Segs-Bands # 3.2 K/CMM 1.5 - 8.1 06/02/2011 Normal [facility] HEMATOLOGY Basophils 0.5 % 0.0 - 1.0 06/02/2011 Normal [facility] HEMATOLOGY Monocytes # 0.6 K/CMM 0.0 - 0.8 06/02/2011 Normal [facility] HEMATOLOGY Lymphocytes # 2.2 K/CMM 1.0 - 5.5 06/02/2011 Normal [facility] HEMATOLOGY Eosinophils # 0.2 K/CMM 0.0 - 0.5 06/02/2011 Normal [facility] HEMATOLOGY Plt Morph Normal (06/02/2011 02:23:00) 06/02/2011 Normal [facility] HEMATOLOGY Lymphocytes 36.0 % 20.0 - 40.0 06/02/2011 Normal [facility] HEMATOLOGY Segs 51.1 % 45.0 - 75.0 06/02/2011 Normal [facility] HEMATOLOGY Eosinophils 2.7 % 0.0 - 4.0 06/02/2011 Normal [facility] HEMATOLOGY Monocytes 9.7 % 2.0 - 12.0 06/02/2011 Normal [facility] HEMATOLOGY MPV 8.1 fL 7.4 - 10.4 06/02/2011 Normal [facility] HEMATOLOGY Platelet 236 K/CMM 133 - 450 06/02/2011 Normal [facility] HEMATOLOGY RDW 13.2 % 11.5 - 14.5 06/02/2011 Normal [facility] HEMATOLOGY WBC 6.2 K/CMM 3.7 - 10.4 06/02/2011 Normal [facility] HEMATOLOGY RBC 4.45 M/CMM 4.20 - 5.40 06/02/2011 Normal [facility] HEMATOLOGY MCV 85.8 fL 81.0 - 99.0 06/02/2011 Normal [facility] HEMATOLOGY MCHC 33.3 g/dL 32.0 - 36.0 06/02/2011 Normal [facility] HEMATOLOGY Hct 38.2 % 36.0 - 48.0 06/02/2011 Normal [facility] HEMATOLOGY MCH 28.6 pg 27.0 - 31.0 06/02/2011 Normal [facility] HEMATOLOGY Hgb 12.7 g/dL 12.0 - 16.0 06/02/2011 Normal [facility] CHEMISTRY U Preg Negative (06/02/2011 01:55:00) Negative 06/02/2011 Normal [facility] URINALYSIS UA Sq Epi Few /LPF (06/02/2011 01:55:00) Few 06/02/2011 Normal [facility] URINALYSIS Micro? Performed (06/02/2011 01:55:00) 06/02/2011 Normal [facility] URINALYSIS UA RBC 1-3 06/02/2011 NA [facility] URINALYSIS UA WBC 3-5 /HPF (06/02/2011 01:55:00) None Seen 06/02/2011 Normal [facility] URINALYSIS UA Leuk Est Trace *ABN* (06/02/2011 01:55:00) Negative 06/02/2011 ABN [facility] URINALYSIS UA Ketones Negative *NA* (06/02/2011 01:55:00) Negative 06/02/2011 NA [facility] URINALYSIS UA Blood Negative (06/02/2011 01:55:00) Negative 06/02/2011 Normal [facility] URINALYSIS UA Bili Negative *NA* (06/02/2011 01:55:00) Negative 06/02/2011 NA [facility] URINALYSIS UA Nitrite Negative (06/02/2011 01:55:00) Negative 06/02/2011 Normal [facility] URINALYSIS UA Urobilinogen 0.2 EU/dL 0.1 - 1.0 06/02/2011 Normal [facility] URINALYSIS UA Spec Grav 1.004 <=1.030 06/02/2011 Normal [facility] URINALYSIS UA Turbidity Slight Cloudy (06/02/2011 01:55:00) Clear 06/02/2011 Normal [facility] URINALYSIS UA Protein Negative (06/02/2011 01:55:00) Negative 06/02/2011 Normal [facility] URINALYSIS UA pH 7.5 5.0 - 8.0 06/02/2011 Normal [facility] URINALYSIS UA Bacteria Few /HPF (06/02/2011 01:55:00) None Seen 06/02/2011 Normal [facility] URINALYSIS UA Glucose Negative (06/02/2011 01:55:00) Negative 06/02/2011 Normal [facility] URINALYSIS UA Color Light Yellow (06/02/2011 01:55:00) Yellow 06/02/2011 Normal [facility] Vital Signs Vital Sign Value Date Comments Source Systolic (mm Hg) 130 09/16/2016 [facility] Diastolic (mm Hg) 72 09/16/2016 [facility] Systolic (mm Hg) 124 08/26/2016 [facility] Diastolic (mm Hg) 69 08/26/2016 [facility] Systolic (mm Hg) 130 08/05/2016 [facility] Diastolic (mm Hg) 83 08/05/2016 [facility] Heart Rate 87 08/05/2016 [facility] Systolic (mm Hg) 119 07/29/2016 [facility] Diastolic (mm Hg) 69 07/29/2016 [facility] Systolic (mm Hg) 124 07/22/2016 [facility] Diastolic (mm Hg) 75 07/22/2016 [facility] Height 154.94 cm 07/11/2016 [facility] Systolic (mm Hg) 165 07/08/2016 [facility] Diastolic (mm Hg) 99 07/08/2016 [facility] Height 154.94 cm 06/24/2016 [facility] Systolic (mm Hg) 137 06/18/2015 [facility] Diastolic (mm Hg) 82 06/18/2015 [facility] Respitory Rate 18 06/18/2015 [facility] Heart Rate 93 06/18/2015 [facility] Temperature Oral (F) 97.9 F 06/18/2015 [facility] Respitory Rate 20 06/18/2015 [facility] Systolic (mm Hg) 138 06/18/2015 [facility] Diastolic (mm Hg) 89 06/18/2015 [facility] Heart Rate 87 06/18/2015 [facility] Temperature Oral (F) 97.8 F 06/18/2015 [facility] BMI Calculated 34.65 06/18/2015 [facility] Height 154.94 cm 06/18/2015 [facility] Temperature Oral (F) 97.9 F 06/18/2015 [facility] Respitory Rate 18 06/18/2015 [facility] Heart Rate 92 06/18/2015 [facility] Systolic (mm Hg) 131 06/18/2015 [facility] Diastolic (mm Hg) 85 06/18/2015 [facility] Weight 83.182 06/18/2015 [facility] Systolic (mm Hg) 156 07/01/2014 [facility] Diastolic (mm Hg) 81 07/01/2014 [facility] Respitory Rate 29 07/01/2014 [facility] Systolic (mm Hg) 124 07/01/2014 [facility] Diastolic (mm Hg) 74 07/01/2014 [facility] Respitory Rate 25 07/01/2014 [facility] Systolic (mm Hg) 119 07/01/2014 [facility] Diastolic (mm Hg) 77 07/01/2014 [facility] Respitory Rate 20 07/01/2014 [facility] Height 154.94 cm 07/01/2014 [facility] BMI Calculated 36.59 07/01/2014 [facility] Weight 87.841 07/01/2014 [facility] Temperature Oral (F) 99.3 F 07/01/2014 [facility] Heart Rate 77 07/01/2014 [facility] Heart Rate 80 07/01/2014 [facility] Temperature Oral (F) 98.5 F 07/01/2014 [facility] Temperature Oral (F) 98.3 F 06/30/2014 [facility] Weight 84.091 06/30/2014 [facility] BMI Calculated 35.03 06/30/2014 [facility] Heart Rate 84 06/30/2014 [facility] Height 154.94 cm 06/30/2014 [facility] Systolic (mm Hg) 122 12/09/2013 [facility] Diastolic (mm Hg) 78 12/09/2013 [facility] Temperature Oral (F) 98.1 F 12/09/2013 [facility] Respitory Rate 18 12/09/2013 [facility] Heart Rate 90 12/09/2013 [facility] BMI Calculated 35.03 12/09/2013 [facility] Weight 84.091 12/09/2013 [facility] Height 154.94 cm 12/09/2013 [facility] Respitory Rate 16 12/09/2013 [facility] Heart Rate 97 12/09/2013 [facility] Temperature Oral (F) 98.2 F 12/09/2013 [facility] Systolic (mm Hg) 133 12/09/2013 [facility] Diastolic (mm Hg) 85 12/09/2013 [facility] Heart Rate 95 06/02/2011 [facility] Diastolic (mm Hg) 67 06/02/2011 [facility] Systolic (mm Hg) 140 06/02/2011 [facility] Respitory Rate 16 06/02/2011 [facility] Diastolic (mm Hg) 67 06/02/2011 [facility] Systolic (mm Hg) 140 06/02/2011 [facility] Respitory Rate 16 06/02/2011 [facility] Heart Rate 98 06/02/2011 [facility] Height 154.94 cm 06/02/2011 [facility] Weight 79.545 06/02/2011 [facility] Temperature Oral (F) 96.6 F 06/02/2011 [facility] Heart Rate 98 06/02/2011 [facility] Respitory Rate 20 06/02/2011 [facility] Systolic (mm Hg) 147 06/02/2011 [facility] Diastolic (mm Hg) 57 06/02/2011 [facility] Encounters Location Location Details Encounter Type Encounter Number Reason For Visit Attending Provider ADM Date DC Date Status Source [facility] Emergency [id number] GENESISTequila SARAVIA 06/02/2011 06/02/2011 Active [facility] [id number] Ronit Cameron 12/09/2013 12/09/2013 [facility] [place] [facility] [id number] Jean Paul Nunez 04/06/2014 04/07/2014 [facility] Inpatient [id number] Harshil De La O 06/30/2014 07/01/2014 [facility] [id number] Petr Prince 06/18/2015 06/18/2015 [facility] Outpatient [facility] [place] [facility] Di[facility] [id number] Rohini Gallo 07/17/2015 07/18/2015 [facility] [place] [facility] Therapy [id number] Sergio Latham 06/24/2016 07/24/2016 [facility] Therapy [id number] Sergio Latham 07/29/2016 08/28/2016 [facility] Therapy [id number] Sergio Latham 09/02/2016 10/02/2016 [facility] Procedures Procedure Code Date Perfomer Comments Source
--- OUTSIDE RECORDS SUMMARY | 2018-11-26 10:03 | XMS REPORT | CCD ---
Author Author Auto Generated Organization [facility] Outpatient Imaging [place] Address Unknown Phone Unavailable Care Team Providers Care Mechanical Reliability Engineer Name Role Phone Martin Merrill CP Allergies, Adverse Reactions, Alerts Substance Reaction Status penicillin Active
--- OUTSIDE RECORDS SUMMARY | 2018-11-26 10:03 | XMS REPORT | Summary of Care ---
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) CVA (cerebral Resolved vascular accident)(Confirmed) Dementia(Confirmed) Resolved Glaucoma(Confirmed) Resolved HTN (hypertension), Resolved benign(Confirmed) MR (mental Resolved retardation)(Confirm ed) Allergies, Adverse Reactions, Alerts Substance Reaction Severity Status contrast media Active (iodine-based) penicillin Active Medications No data available for this section Results No data available for this section Immunizations No data available for this section Procedures No data available for this section Social History Social History Type Response Alcohol Never Smoking Status Never smoker; Exposure to Tobacco Smoke None; Cigarette Smoking Last 365 Days No; Reg Smoking Cessation Counseling No Assessment and Plan No data available for this section
--- OUTSIDE RECORDS SUMMARY | 2018-11-26 10:03 | XMS REPORT | CCD ---
Author Author Auto Generated Organization [facility] Address Unknown Phone Unavailable Care Team Providers Care Sales Service Rep Name Role Phone Betzy Myers CP Allergies, Adverse Reactions, Alerts Substance Reaction Status penicillin Active Medications Medication Instructions Start Date End Date Status Nexium 40 mg oral 40 mg, 1 cap, PO, Daily, 30 cap, 06/02/2011 Ordered delayed release Substitution Allowed capsule aspirin 81 mg 81 mg, 1 tab, PO, Daily, tab, 06/02/2011 Ordered tablet, chewable Substitution Allowed, CHEWTAB Ciprodex otic Substitution Allowed, Maintenance 06/02/2011 Ordered suspension ondansetron 4 mg, 2 mL, Route: IVP, Drug form: 06/02/2011 06/02/2011 Completed INJ, ONCE, Priority: STAT, Start date: 06/02/11 1:55:00, Stop date: 06/02/11 1:55:00 morphine Sulfate 2 mg, 0.5 mL, Route: IVP, Drug 06/02/2011 06/02/2011 Completed form: INJ, ONCE, Priority: STAT, Start date: 06/02/11 1:55:00, Stop date: 06/02/11 1:55:00 Xalatan Substitute Allowed 06/02/2011 Ordered GI cocktail 40 mL, Route: PO, Drug Form: SUSP, 06/02/2011 06/02/2011 Completed ONCE, STAT, Start date: 06/02/11 2:28:00, Stop date: 06/02/11 2:28:00 Protonix 40 mg, Route: IVP, Drug form: INJ, 06/02/2011 06/02/2011 Completed ONCE, Start date: 06/02/11 1:55:00, Stop date: 06/02/11 1:55:00 Vital Signs Most recent to oldest [Reference Range]: 1 2 3 Height 154.94 cm (06/02/2011 01:39:00) Temperature Oral [96.4-99.1 DegF] 96.6 DegF (06/02/2011 01:39:00) Systolic Blood Pressure [90-140 mmHg] 140 mmHg (06/02/2011 03:48:00) 140 mmHg (06/02/2011 01:53:00) 147 mmHg *HI* (06/02/2011 01:39:00) Diastolic Blood Pressure [60-90 mmHg] 67 mmHg (06/02/2011 03:48:00) 67 mmHg (06/02/2011 01:53:00) 57 mmHg *LOW* (06/02/2011 01:39:00) Respiratory Rate [14-20 BRMIN] 16 BRMIN (06/02/2011 03:48:00) 16 BRMIN (06/02/2011 01:53:00) 20 BRMIN (06/02/2011 01:39:00) Peripheral Pulse Rate [60-100 bpm] 95 bpm (06/02/2011 03:48:00) 98 bpm (06/02/2011 01:53:00) 98 bpm (06/02/2011 01:39:00) Weight 79.545 kg (06/02/2011 01:39:00) Results URINALYSIS Most recent to oldest [Reference Range]: 1 UA Turbidity [Clear] Slight Cloudy (06/02/2011 01:55:00) UA Color [Yellow] Light Yellow (06/02/2011 01:55:00) UA pH [5.0-8.0] 7.5 (06/02/2011 01:55:00) UA Spec Grav [<=1.030] 1.004 (06/02/2011 01:55:00) UA Glucose [Negative] Negative (06/02/2011 01:55:00) UA Blood [Negative] Negative (06/02/2011 01:55:00) UA Ketones [Negative] Negative *NA* (06/02/2011 01:55:00) UA Protein [Negative] Negative (06/02/2011 01:55:00) UA Urobilinogen [0.1-1.0 EU/dL] 0.2 EU/dL (06/02/2011 01:55:00) UA Bili [Negative] Negative *NA* (06/02/2011 01:55:00) UA Leuk Est [Negative] Trace *ABN* (06/02/2011 01:55:00) UA Nitrite [Negative] Negative (06/02/2011 01:55:00) UA WBC [None Seen /HPF] 3-5 /HPF (06/02/2011 01:55:00) UA RBC 1-3 *NA* (06/02/2011 01:55:00) UA Bacteria [None Seen /HPF] Few /HPF (06/02/2011 01:55:00) UA Sq Epi [Few /LPF] Few /LPF (06/02/2011 01:55:00) Micro? Performed (06/02/2011 01:55:00) CHEMISTRY Most recent to oldest [Reference Range]: 1 Sodium Lvl [135-145 mEq/L] 142 mEq/L (06/02/2011 02:23:00) Potassium Lvl [3.5-5.1 mEq/L] 3.9 mEq/L (06/02/2011 02:23:00) Chloride Lvl [95-109 mEq/L] 105 mEq/L (06/02/2011 02:23:00) CO2 [24-32 mEq/L] 28 mEq/L (06/02/2011 02:23:00) AGAP [10.0-20.0 mEq/L] 12.9 mEq/L (06/02/2011 02:23:00) Creatinine Lvl [0.5-1.4 mg/dL] 0.7 mg/dL (06/02/2011 02:23:00) BUN [7-22 mg/dL] 9 mg/dL (06/02/2011 02:23:00) Glucose Lvl 101 mg/dL 1 *NA* (06/02/2011 02:23:00) Total Protein [6.4-8.4 g/dL] 8.2 g/dL (06/02/2011 02:23:00) Albumin Lvl [3.5-5.0 g/dL] 4.2 g/dL (06/02/2011 02:23:00) Globulin [2.0-4.0 g/dL] 4.0 g/dL (06/02/2011 02:23:00) A/G Ratio [0.7-1.6] 1.1 (06/02/2011 02:23:00) Calcium Lvl [8.5-10.5 mg/dL] 9.1 mg/dL (06/02/2011 02:23:00) Phosphorus [2.5-4.5 mg/dL] 2.9 mg/dL (06/02/2011 02:23:00) Magnesium Lvl [1.8-2.4 mg/dL] 2.1 mg/dL (06/02/2011 02:23:00) ALT [0-65 U/L] 29 U/L (06/02/2011 02:23:00) AST [0-37 U/L] 17 U/L (06/02/2011 02:23:00) Alk Phos [39-136 U/L] 123 U/L (06/02/2011 02:23:00) Bili Total [0.2-1.3 mg/dL] 0.3 mg/dL (06/02/2011 02:23:00) Bili Direct [0.0-0.3 mg/dL] 0.1 mg/dL (06/02/2011 02:23:00) Bili Indirect [0.0-1.0 mg/dL] 0.2 mg/dL (06/02/2011 02:23:00) Lipase Lvl [73-393 U/L] 158 U/L (06/02/2011 02:23:00) U Preg [Negative] Negative (06/02/2011 01:55:00) 1Interpretive Data: Reference Ranges : 0 - 7 days : 41 - 90 mg/dL7 days - 150 yrs : 70 - 99 mg/dL (fasting), based on the clinical recommendations of the [place] [employer]. HEMATOLOGY Most recent to oldest [Reference Range]: 1 WBC [3.7-10.4 K/CMM] 6.2 K/CMM (06/02/2011 02:23:00) RBC [4.20-5.40 M/CMM] 4.45 M/CMM (06/02/2011 02:23:00) Hgb [12.0-16.0 g/dL] 12.7 g/dL (06/02/2011 02:23:00) Hct [36.0-48.0 %] 38.2 % (06/02/2011 02:23:00) MCV [81.0-99.0 fL] 85.8 fL (06/02/2011 02:23:00) MCH [27.0-31.0 pg] 28.6 pg (06/02/2011 02:23:00) MCHC [32.0-36.0 g/dL] 33.3 g/dL (06/02/2011 02:23:00) RDW [11.5-14.5 %] 13.2 % (06/02/2011 02:23:00) Platelet [133-450 K/CMM] 236 K/CMM (06/02/2011 02:23:00) MPV [7.4-10.4 fL] 8.1 fL (06/02/2011 02:23:00) Segs [45.0-75.0 %] 51.1 % (06/02/2011 02:23:00) Lymphocytes [20.0-40.0 %] 36.0 % (06/02/2011 02:23:00) Monocytes [2.0-12.0 %] 9.7 % (06/02/2011 02:23:00) Eosinophils [0.0-4.0 %] 2.7 % (06/02/2011 02:23:00) Basophils [0.0-1.0 %] 0.5 % (06/02/2011 02:23:00) Segs-Bands # [1.5-8.1 K/CMM] 3.2 K/CMM (06/02/2011 02:23:00) Lymphocytes # [1.0-5.5 K/CMM] 2.2 K/CMM (06/02/2011 02:23:00) Monocytes # [0.0-0.8 K/CMM] 0.6 K/CMM (06/02/2011 02:23:00) Eosinophils # [0.0-0.5 K/CMM] 0.2 K/CMM (06/02/2011 02:23:00) Basophils # [0.0-0.2 K/CMM] 0.0 K/CMM (06/02/2011 02:23:00) RBC Morph Normal (06/02/2011 02:23:00) Plt Morph Normal (06/02/2011 02:23:00)
--- OUTSIDE RECORDS SUMMARY | 2018-11-26 10:03 | XMS REPORT | Summary of Care ---
Author Organization Unknown Address Unknown Phone Unavailable Encounter CHRISTY Mckeon(MISBAH) [id number] Date(s): 12/09/13 - 12/09/[address] Discharge Diagnosis: Accidental fall Discharge Disposition: Home Physician Attending: Ronit Cameron MD Reason for Visit FELL/HIT HEAD AT HOME Vital Signs Most recent to 1 2 oldest [Reference Range]: Height 154.94 cm (12/09/13 4:11 PM) Temperature Oral 98.1 DegF 98.2 DegF [96.4-99.1 DegF] (12/09/13 5:46 PM) (12/09/13 4:11 PM) Systolic Blood 122 mmHg 133 mmHg Pressure [90-140 (12/09/13 5:46 PM) (12/09/13 4:11 PM) mmHg] Diastolic Blood 78 mmHg 85 mmHg Pressure [60-90 (12/09/13 5:46 PM) (12/09/13 4:11 PM) mmHg] Respiratory Rate 18 BRMIN 16 BRMIN [14-20 BRMIN] (12/09/13 5:46 PM) (12/09/13 4:11 PM) Peripheral Pulse 90 bpm 97 bpm Rate [60-100 bpm] (12/09/13 5:46 PM) (12/09/13 4:11 PM) Weight 84.091 kg (12/09/13 4:11 PM) Body Mass Index 35.03 m2 (12/09/13 4:11 PM) Problem List Condition Effective Dates Status Health Status Informant CVA (cerebral Resolved vascular accident)(Confirmed) Dementia(Confirmed) Resolved Glaucoma(Confirmed) Resolved HTN (hypertension), Resolved benign(Confirmed) MR (mental Resolved retardation)(Confirm ed) Allergies, Adverse Reactions, Alerts Substance Reaction Severity Status penicillin Active Medications Tylenol 650 mg, 2 tab, Route: PO, Drug form: TAB, ONCE, Dosing Weight 84.091, kg, Priori ty: STAT, Start date: 12/09/13 17:16:00, Stop date: 12/09/13 17:16:00 Notes: Do not exceed 4 gm/day. (Same as: Tylenol) Start Date: 12/09/13 Stop Date: 12/09/13 Status: Completed Medications Administered During Your Visit No data available for this section Immunizations No data available for this section
--- OUTSIDE RECORDS SUMMARY | 2018-11-26 10:03 | XMS REPORT | Summary of Care ---
Author Organization Unknown Address Unknown Phone Unavailable Encounter HQ Encntr_blu(FIN) [id number] Date(s): 04/06/14 - 04/06/14 [facility] Outpatient Imaging [address] Discharge Disposition: Home Physician Attending: Jean Paul Nunez MD Reason for Visit V76.12 - SCREEN MAMMOGRA Problem List Condition Effective Dates Status Health Status Informant CVA (cerebral Resolved vascular accident)(Confirmed) Dementia(Confirmed) Resolved Glaucoma(Confirmed) Resolved HTN (hypertension), Resolved benign(Confirmed) MR (mental Resolved retardation)(Confirm ed) Allergies, Adverse Reactions, Alerts Substance Reaction Severity Status penicillin Active Medications No data available for this section Medications Administered During Your Visit No data available for this section Immunizations No data available for this section
--- OUTSIDE RECORDS SUMMARY | 2018-11-26 10:03 | XMS REPORT | Summary of Care ---
Author Author [facility] Organization [facility] Address Unknown Phone Unavailable Encounter CHRISTY Mckeon(MISBAH) [id number] Date(s): 06/17/15 - 06/17/15 [facility] [address] [employer] provided by [facility] [place] [address]- Discharge Diagnosis: Hematoma Discharge Diagnosis: Fall at home Discharge Disposition: Home Attending Physician: Petr Prince MD Vital Signs 1 2 3 Most recent to oldest [Reference Range]: 154.94 cm (06/17/15 6:31 PM) Height 97.9 DegF (06/17/15 11:20 PM) 97.8 DegF (06/17/15 9:41 PM) 97.9 DegF (06/17/15 6:31 PM) Temperature Oral [96.4-99.1 DegF] 137/82 mmHg (06/17/15 11:20 PM) 138/89 mmHg (06/17/15 9:41 PM) 131/85 mmHg (06/17/15 6:31 PM) Blood Pressure [90-140/60-90 mmHg] 18 BRMIN (06/17/15 11:20 PM) 20 BRMIN (06/17/15 9:41 PM) 18 BRMIN (06/17/15 6:31 PM) Respiratory Rate [14-20 BRMIN] 93 bpm (06/17/15 11:20 PM) 87 bpm (06/17/15 9:41 PM) 92 bpm (06/17/15 6:31 PM) Peripheral Pulse Rate [60-100 bpm] 83.182 kg (06/17/15 6:31 PM) Weight 34.65 m2 (06/17/15 6:31 PM) Body Mass Index Problem List Condition Effective Dates Status Health Status Informant Anxiety(Confirmed) Resolved 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) CVA (cerebral Resolved vascular accident)(Confirmed) Dementia(Confirmed) Resolved Glaucoma(Confirmed) Resolved HTN (hypertension), Resolved benign(Confirmed) MR (mental Resolved retardation)(Confirm ed) Allergies, Adverse Reactions, Alerts Substance Reaction Severity Status contrast media Active (iodine-based) penicillin Active Medications ibuprofen 400 mg, 1 tab, Route: PO, Drug form: TAB, ONCE, Dosing Weight 83.182, kg, Priori ty: STAT, Start date: 06/17/15 20:20:00, Stop date: 06/17/15 20:20:00 Start Date: 06/17/15 Stop Date: 06/17/15 Status: Completed Saline Flush 0.9% 10 mL, Route: IVP, Drug Form: INJ, Dosing Weight 83.182, kg, PRN, PRN Line Flush , Start date: 06/17/15 20:20:00, Duration: 30 day, Stop date: 07/17/15 20:19:00 Notes: (Same as: BD Posiflush) Start Date: 06/17/15 Stop Date: 06/18/15 Status: Discontinued Results ELECTROLYTES Most recent to 1 oldest [Reference Range]: Sodium Lvl [135-145 139 mEq/L mEq/L] (06/17/15 8:45 PM) Potassium Lvl 4.8 mEq/L 1 [3.5-5.1 mEq/L] (06/17/15 8:45 PM) Chloride Lvl [95-109 103 mEq/L mEq/L] (06/17/15 8:45 PM) CO2 [24-32 mEq/L] 26 mEq/L (06/17/15 8:45 PM) AGAP [10.0-20.0 14.8 mEq/L mEq/L] (06/17/15 8:45 PM) 1Result Comment: moderate hemolysis CHEM PANEL Most recent to 1 oldest [Reference Range]: Creatinine Lvl 0.59 mg/dL [0.50-1.40 mg/dL] (06/17/15 8:45 PM) eGFR 113 mL/min/1.73m2 1 *NA* (06/17/15 8:45 PM) BUN [7-22 mg/dL] 13 mg/dL (06/17/15 8:45 PM) Glucose Lvl [70-99 111 mg/dL mg/dL] *HI* (06/17/15 8:45 PM) Calcium Lvl 9.4 mg/dL [8.5-10.5 mg/dL] (06/17/15 8:45 PM) 1Result Comment: The eGFR is calculated [...] be mul tiplied by the estimated BMI. HEMATOLOGY Most recent to 1 oldest [Reference Range]: WBC [3.7-10.4 K/CMM] 9.6 K/CMM (06/17/15 10:20 PM) RBC [4.20-5.40 4.58 M/CMM M/CMM] (06/17/15 10:20 PM) Hgb [12.0-16.0 g/dL] 12.2 g/dL (06/17/15 10:20 PM) Hct [36.0-48.0 %] 38.6 % (06/17/15 10:20 PM) MCV [80.0-98.0 fL] 84.2 fL (06/17/15 10:20 PM) MCH [27.0-31.0 pg] 26.7 pg *LOW* (06/17/15 10:20 PM) MCHC [32.0-36.0 31.7 g/dL g/dL] *LOW* (06/17/15 10:20 PM) RDW [11.5-14.5 %] 14.9 % *HI* (06/17/15 10:20 PM) Platelet [133-450 303 K/CMM K/CMM] (06/17/15 10:20 PM) MPV [7.4-10.4 fL] 8.1 fL (06/17/15 10:20 PM) Segs [45.0-75.0 %] 68.7 % (06/17/15 10:20 PM) Lymphocytes 23.5 % [20.0-40.0 %] (06/17/15 10:20 PM) Monocytes [2.0-12.0 6.2 % %] (06/17/15 10:20 PM) Eosinophils [0.0-4.0 0.7 % %] (06/17/15 10:20 PM) Basophils [0.0-1.0 0.9 % %] (06/17/15 10:20 PM) Segs-Bands # 6.6 K/CMM [1.5-8.1 K/CMM] (06/17/15 10:20 PM) Lymphocytes # 2.3 K/CMM [1.0-5.5 K/CMM] (06/17/15 10:20 PM) Monocytes # [0.0-0.8 0.6 K/CMM K/CMM] (06/17/15 10:20 PM) Eosinophils # 0.1 K/CMM [0.0-0.5 K/CMM] (06/17/15 10:20 PM) Basophils # [0.0-0.2 0.1 K/CMM K/CMM] (06/17/15 10:20 PM) Immunizations No data available for this section Procedures No data available for this section Social History Social History Type Response Alcohol Never Smoking Status Never smoker; Exposure to Tobacco Smoke None; Cigarette Smoking Last 365 Days No; Reg Smoking Cessation Counseling No Assessment and Plan No data available for this section
--- OUTSIDE RECORDS SUMMARY | 2018-11-26 10:04 | XMS REPORT | Summary of Care ---
Author Author [facility] Address Unknown Phone Unavailable Encounter HQ Linda(MISBAH) [id number] Date(s): 07/29/16 - 08/27/16 [facility] [address] [place], [place] [address] Discharge Disposition: Home or Self Care Attending Physician: Sergio Latham MD Vital Signs 1 2 3 Most recent to oldest [Reference Range]: 124/69 mmHg (08/26/16 4:14 PM) 130/83 mmHg (08/05/16 3:11 PM) 119/69 mmHg (07/29/16 4:33 PM) Blood Pressure [90-140/60-90 mmHg] 87 bpm (08/05/16 3:11 PM) Peripheral Pulse Rate [60-100 bpm] Problem List Condition Effective Dates Status Health [...]
--- OUTSIDE RECORDS SUMMARY | 2018-11-26 10:04 | XMS REPORT ---
Author Author [facility] Address Unknown Phone Unavailable Care Team Providers Care Linux Security Administrator Name Role Phone Unavailable Unavailable Problems This patient has no known problems. Allergies, Adverse Reactions, Alerts This patient has no known allergies or adverse reactions. Medications This patient has no known medications. Results Test Description Test Time Test Comments Text Results Atomic Results Result Comments US Gallbladder 2018-06-22 20:56:13 Patient: REZA SIDDIQI Date/Time06/22/2018 20:42 CSTReason for ExamAbdominal pain, right upper quadrantReportStudy: US GallbladderIndication: PainComparison: CT performed earlier.Location: B53Akrbkzsb:Mobile cholelithiasis is noted within the otherwise normal-appearing gallbladder. No pericholecystic free fluid is visualized. The common bile duct measures 4 mm.Impression:Mobile cholelithiasis is noted within the otherwise normal-appearing gallbladder. No pericholecystic free fluid is visualized. The common bile duct measures 4 mm. Final Dictated by: MD Kush, SaniaDictated DT/TM: 06/22/2018 8:55 pmSigned by: MD Kush, SaniaSigned (Electronic Signature): 06/22/2018 8:[address] Abdomen and Pelvis w/o Contrast 2018-06-22 18:04:14 Patient: REZA SIDDIQI Date/Time06/22/2018 17:18 CSTReason for ExamAbdominal painReportExam: CT abdomen and pelvis without contrast.Location: E1Xclulll: Abdominal painTechnique: Unenhanced spiral slices were taken from the dome of the diaphragm to the pubic symphysis. Sagittal and coronal images were obtained. One or more of the following radiation dose reduction techniques was used: Automatic exposure control, adjustment of mA and/or KV according to the patient's size, and/or utilization of iterative reconstruction technique.Findings:The liver is of normal, homogeneous density. No mass is seen. The intra and extrahepatic biliary tree is normal. A small stone and/or polyp is present in the gallbladder. No pericholecystic fluid or wall thickening is seen.The pancreas is normal. The pancreatic duct is normal in caliber. The spleen and adrenal glands are normal in size and shape.The kidneys are normal. No nephrolithiasis, perinephric fluid collections or hydronephrosis is seen.The large and small intestine are normal in caliber. The appendix is nonvisualized. No inflammatory change is identified. A small, sliding hiatal hernia is seen.No lymphadenopathy or free fluid is found in the abdomen or the pelvis.The pelvic structures are unremarkable.The lung bases are clear.No incidental abdominal findings are noted.Impression:1. No acute abdominal findings.2. Gallbladder polyp versus stone.3. Small, sliding hiatal hernia.4. Otherwise unremarkable exam. Final Dictated by: MD Simon Francesco MDictated DT/TM: 06/22/2018 6:01 pmSigned by: MD Simon Francesco MSigned (Electronic Signature): 06/22/2018 6:04 pm
--- OUTSIDE RECORDS SUMMARY | 2018-11-26 10:04 | XMS REPORT | Summary of Care ---
Author Author [facility] Address Unknown Phone Unavailable Encounter HQ Estrella_blu(MISBAH) [id number] Date(s): 06/24/16 - 07/23/16 [facility] [address] [place], [place] [address] Discharge Disposition: Home or Self Care Attending Physician: Sergio Latham MD Referring Physician: Sergio Latham MD Vital Signs Most recent to 1 2 oldest [Reference Range]: Height 154.94 cm 154.94 cm (07/11/16 8:29 AM) (06/24/16 11:05 AM) Blood Pressure 124/75 mmHg 165/99 mmHg [90-140/60-90 mmHg] (07/22/16 2:00 PM) *HI* (07/08/16 4:33 PM) Problem List Condition Effective Dates Status [...]
--- OUTSIDE RECORDS SUMMARY | 2018-11-26 10:04 | XMS REPORT | Summary of Care ---
Author Author [facility] Address Unknown Phone Unavailable Encounter HQ Linda(MISBAH) [id number] Date(s): 09/02/16 - 10/01/16 [facility] [address] [place], [place] [address] Discharge Disposition: Home or Self Care Attending Physician: Sergio Latham MD Vital Signs Most recent to 1 oldest [Reference Range]: Blood Pressure 130/72 mmHg [90-140/60-90 mmHg] (09/16/16 3:43 PM) Problem List Condition Effective Dates Status [...]
[2018-11-26 14:08] VITALS: BP 99/69
[2018-11-26 14:44] LABS: WBC,FECAL (FECAL LACTOFERRIN) POSITIVE (NEGATIVE)
--- NOTE | 2018-11-26 14:47 | Operative Report ---
DATE OF PROCEDURE: 11/26/2018 SURGEON: Napoleon Chapman MD PROCEDURE: Esophagogastroduodenoscopy with esophageal dilatation and biopsies and a colonoscopy with biopsies. INDICATIONS FOR EGD: Upper abdominal pain. INDICATIONS FOR COLONOSCOPY: Chronic diarrhea. MEDICATIONS: The patient was done under MAC, please see anesthesiologist's note. PROCEDURE IN DETAIL: With the patient in the left lateral decubitus position, the flexible fiberoptic Olympus colonoscope was introduced into the oropharynx and could not be advanced beyond the upper esophageal sphincter. A tight stricture was noted just below the upper esophageal sphincter that was subsequently dilated to size 44-[place]. The scope was then reintroduced into the esophagus with ease and advanced all the way to the second portion of the duodenum. The scope was then withdrawn slowly and mucosa overlying the proximal second portion and the duodenal bulb grossly was within normal limits, biopsies were obtained to rule out sprue. The scope was then withdrawn back into the stomach and biopsies were obtained from the antrum and the body and sent to stain for H pylori. The scope was then retroflexed and mucosa overlying the fundus and the cardia grossly appeared to be within normal limits. A moderate to large size hiatal hernia was noted in the retroflexed position. The scope was then straightened out, it was subsequently withdrawn. On the way out, a 4 cm hiatal hernia was noted. There was a tear in the hiatal hernia sac compatible with a Sandra-Craig tear and some erosions were noted in the distal esophagus. The scope was subsequently withdrawn. The patient tolerated procedure well. IMPRESSION: 1. Esophageal stricture tight, just below upper esophageal sphincter, dilated to size 44-Spanish Monte. 2. Distal erosive esophagitis. 3. Large hiatal hernia. 4. Sandra-Craig tear in hiatal hernia sac without active bleeding. 5. Gastritis, biopsied, biopsies sent to stain for H pylori. 6. Rule out sprue. PLAN: Follow up histology. Initiate Protonix 40 mg one p.o. q.a.m. a.c. PROCEDURE IN DETAIL: The patient was then turned around. After adequate lubrication of the anal canal, a flexible fiberoptic Olympus colonoscope was inserted into the rectum with ease and advanced all the way to the cecum. Mucosa overlying the cecum grossly appeared to be within normal limits. The ileocecal valve was intubated and the scope was advanced into the terminal ileum. Biopsies were obtained. The scope was then withdrawn back into the colon. It was then withdrawn slowly and mucosa overlying the ascending, transverse, descending, sigmoid and the rectum revealed some patchy mild inflammatory changes more prominent in the left colon and biopsies were obtained from the left colon. The scope was then retroflexed into the distal rectum, small internal hemorrhoids were noted, none of which was actively bleeding. The scope was then straightened out, it was subsequently withdrawn after securing an adequate stool specimen that was sent for the appropriate stool studies. The patient tolerated procedure well. IMPRESSION: 1. Suboptimal prep, but visualization was fair. 2. Mild patchy colitis, primarily left-sided. 3. Internal hemorrhoids, none actively bleeding. PLAN: Follow up histology. Follow up stool studies. Initiate Bentyl 10 mg one p.o. t.i.d. VSL#3 one p.o. daily. The patient might benefit from a followup colonoscopy in 10 years. Napoleon Chapman MD [facility]/ERNESTO /[id number] cc: Kaden River MD
[2018-11-27 14:52] LABS: C DIFFICILE TOXIN A&B AMP PROB NEGATIVE (NEGATIVE)
== END | disposition home or self-care (01) ==
LOC: OR 10:00
PROVIDERS: ATTEND Internal Medicine Gastroenterology
DX: K29.70 Gastritis, unspecified, without bleeding (principal); K22.2 Esophageal obstruction; K22.6 Gastro-esophageal laceration-hemorrhage syndrome; K22.10 Ulcer of esophagus without bleeding; K29.80 Duodenitis without bleeding; K51.50 Left sided colitis without complications; K44.9 Diaphragmatic hernia without obstruction or gangrene; K64.8 Other hemorrhoids; R03.0 Elevated blood-pressure reading, without diagnosis of hypertension; Z88.0 Allergy status to penicillin; Z79.82 Long term (current) use of aspirin; Z86.73 Personal history of transient ischemic attack (TIA), and cerebral infarction without residual deficits
CPT/HCPCS: 36415; 43239; 43450; 45380; 83630; 83993; 84702; 87045; 87177; 87328; 87493; 88305; 88312; J1610; J1980; J2001; J2250; J2704; 45378

== ENCOUNTER → 2018-12-06 | Outpatient (CLI) | payer MEDICARE ==
[~2018-12-06] MED LIST changes: -FENTANYL CITRATE/PF 100MCG/2 ML INJ ONE; -GLUCAGON FOR INJ 1 MG VIAL ONE; -HYOSCYAMINE SULFATE 0.5 MG/ML INJ ONE; -LIDOCAINE HCL 2% LOCAL INJ 5 ML SDV VIAL INJ ONE; -MIDAZOLAM HCL 2 MG/2 ML VIAL ONE; -PROPOFOL IV EMULSION 10 MG/ML 50 ML VIAL ONE
--- NOTE | 2018-12-06 16:46 | Diagnostic Imaging Report ---
Hepatobiliary Scan with Gallbladder Ejection Fraction Clinical information: Upper abdominal pain Technique: Following intravenous administration of 6.5 millicuries of Tc-99m mebrofenin, dynamic images of the abdomen in the anterior projection were obtained through 30 minutes. Sincalide (CCK analog) 1.5 micrograms was administered intravenously over 30 minutes with additional imaging for determination of gallbladder ejection fraction. Discussion: Perfusion of the liver is normal. Extraction of tracer by the liver parenchyma is normal. Tracer appears promptly within the biliary tract. The gallbladder begins to fill at 20 minutes post injection of tracer and fills adequately. Tracer is seen in the small bowel by 20 minutes. There is no contractile response by the gallbladder to the pharmacologic dose of sincalide. No emptying of the gallbladder occurs during the 30 minute infusion. Impression: 1. Filling of the gallbladder excludes acute cystic duct obstruction/acute cholecystitis. 2. The gallbladder ejection fraction is undefined as there is no emptying of the gallbladder during the infusion of sincalide. This absence of a contractile response to sincalide supports the clinical diagnosis of chronic cholecystitis/gallbladder dyskinesia. Signed by: Dr. Jazz Santos M.D. on 12/06/2018 4:43 PM
== END ==
LOC: NM 12:34
PROVIDERS: ATTEND Internal Medicine Gastroenterology
DX: R10.10 Upper abdominal pain, unspecified (principal)
CPT/HCPCS: 78227; A9537

== ENCOUNTER → 2019-01-24 | Outpatient (CLI) | payer MEDICARE ==
--- NOTE | 2019-02-11 09:29 | Diagnostic Imaging Report ---
#[id number] - MGSCRBIL #BILATERAL DIGITAL SCREENING MAMMOGRAM WITH CAD: 01/24/2019 Comparison is made to exam dated: 04/06/2014 mammogram - [facility]. Current study contains 4 films. The tissue of both breasts is predominantly fatty. Current study was also evaluated with a Computer Aided Detection (CAD) system. There are benign appearing mass in the right breast which is stable. No significant masses, calcifications, or other findings are seen in either breast. IMPRESSION: BENIGN There is no mammographic evidence of malignancy. A 1 year screening mammogram is recommended. The patient will be notified by letter of the results. IRASEMA GOULD M.D. ct/penrad:02/07/2019 10:15:16 Rounder Hand: Jazz STAFFORD)(M), [facility] letter sent: Normal Exam Mammogram BI-RADS: 2 Benign
== END ==
LOC: MAMMO 11:58
PROVIDERS: ATTEND General Practice
DX: Z12.31 Encounter for screening mammogram for malignant neoplasm of breast (principal)
CPT/HCPCS: 77067

== ENCOUNTER → 2020-08-04 | Day surgery (SDC) | payer MEDICARE ==
[~2020-08-04] MED LIST changes: +DICYCLOMINE HCL10 MG PO; +LIDOCAINE HCL 2% LOCAL INJ 5 ML SDV VIAL INJ ONE; +PROPOFOL IV EMULSION 10 MG/ML 20 ML VIAL ONE
[2020-08-04 18:05] VITALS: BP 116/68
[2020-08-04 18:45] LABS: WBC,FECAL (FECAL LACTOFERRIN) NEGATIVE (NEGATIVE)
[2020-08-05 12:34] LABS: C DIFFICILE TOXIN A&B AMP PROB NEGATIVE (NEGATIVE)
== END | disposition home or self-care (01) ==
LOC: OR 13:05
PROVIDERS: ATTEND Internal Medicine Gastroenterology
DX: K52.9 Noninfective gastroenteritis and colitis, unspecified (principal); K62.89 Other specified diseases of anus and rectum; K64.8 Other hemorrhoids; R13.19 Other dysphagia; R63.4 Abnormal weight loss; F99 Mental disorder, not otherwise specified; I67.850 Cerebral autosomal dominant arteriopathy with subcortical infarcts and leukoencephalopathy; E55.9 Vitamin D deficiency, unspecified; Z88.6 Allergy status to analgesic agent; Z88.0 Allergy status to penicillin; Z79.82 Long term (current) use of aspirin; Z86.73 Personal history of transient ischemic attack (TIA), and cerebral infarction without residual deficits; Z87.19 Personal history of other diseases of the digestive system
CPT/HCPCS: 36415; 43235; 45380; 83630; 83993; 84702; 87045; 87177; 87328; 87493; 88305; J2001; J2704; U0002; 45378

== ENCOUNTER → 2020-08-18 | Outpatient (CLI) | payer MEDICARE ==
[~2020-08-18] MED LIST changes: -LIDOCAINE HCL 2% LOCAL INJ 5 ML SDV VIAL INJ ONE; -PROPOFOL IV EMULSION 10 MG/ML 20 ML VIAL ONE
== END ==
LOC: DX 09:40
PROVIDERS: ATTEND Internal Medicine Gastroenterology
DX: Z01.812 Encounter for preprocedural laboratory examination (principal); Z20.822 Contact with and (suspected) exposure to COVID-19; R13.14 Dysphagia, pharyngoesophageal phase
CPT/HCPCS: 74220; U0002